=== PATIENT | female | born 1990 | race Caucasian/White ===

== ENCOUNTER 2017-02-22 16:14 | Emergency (ER) | payer MEDICAID ==
[~2017-02-22] VITALS: Ht 162.6 cm; Wt 71.5 kg
[~2017-02-22 16:14] MED LIST: IBUP-1542 PO; NITR-58 PO; PHEN-537 PO
[2017-02-22 16:21] VITALS: Ht 162.6 cm; Wt 71.5 kg
[2017-02-22] MEDS: ACETAMINOPHEN 500 MG TAB PO STA ×2 (19:02→19:04)
[2017-02-22 19:11] LABS: ADD SCAN DIFF NO
[2017-02-22 19:14] LABS: BASOPHILS % 0.2 % (0.0-2.0); EOSINOPHILS # 0.1 10^3/ul (0.0-0.5); EOSINOPHILS % 0.9 % (0.0-7.0); HEMOGLOBIN 11.9 g/dl (12.0-16.0); LYMPHOCYTES # 1.8 10^3/ul (0.8-2.9); LYMPHOCYTES % 15.3 % (15.0-51.0); MEAN CORPUSCULAR HEMOGLOBIN 31.5 pg (29.0-33.0); MEAN CORPUSCULAR VOLUME 89.9 fl (82.0-101.0); MEAN PLATELET VOLUME 9.1 fl (7.4-10.4); MONOCYTE # 0.7 10^3/ul (0.3-0.9); MONOCYTES % 5.6 % (0.0-11.0); NEUTROPHIL # 9.1 10^3/ul (1.6-7.5); NEUTROPHILS % 77.6 % (39.0-77.0); PLATELET COUNT 271 10^3/UL (140-415); RED BLOOD COUNT 3.78 10^6/ul (4.20-5.40); RED CELL DISTRIBUTION WIDTH 13.2 % (11.5-14.5); WHITE BLOOD COUNT 11.7 10^3/ul (4.8-10.8)
[2017-02-22 19:15] LABS: ADD UMIC YES; UR BILIRUBIN (Dip) NEGATIVE (NEGATIVE); UR BLOOD (Dip) 2+ (NEGATIVE); UR CLARITY SLIGHTLY CLOUDY (CLEAR); UR COLOR LT. YELLOW (YELLOW); UR GLUCOSE (Dip) NEGATIVE (NEGATIVE); UR KETONES (Dip) NEGATIVE (NEGATIVE); UR LEUKOCYTE ESTERASE (Dip) 1+ (NEGATIVE); UR NITRITE (Dip) NEGATIVE (NEGATIVE); UR TOTAL PROTEIN (Dip) 1+ (NEGATIVE); UR UROBILINOGEN (Dip) 1.0 E.U./dL (0.1-1.0)
--- NOTE | 2017-02-22 19:18 | RADRPT ---
PROCEDURE: Obstetrical ultrasound greater than 14 weeks CLINICAL INDICATION: Vaginal bleeding TECHNIQUE: Real time sonographic imaging of the gravid uterus is performed transabdominally and mu ltiple static lobo scale and Doppler images are submitted for review as are measurements. The image s are reviewed on the PACS. COMPARISON: No relevant exams are available FINDINGS: The cervical os is closed with a normal cervical length of 4.23 cm. There is a single living intrauterine gestation in variable presentation. The heart beat is e stimated at 156 bpm. The measurements are as follows: BPD:3.47 cm HC:13.04 cm AC:10.82 cm FL:2.17 cm Estimated gestational age is 16 weeks 5 days. The estimated date of delivery is 08/04/2017. The estimated weight is 163 grams. Placenta is posterior and grade 0. There is no evidence of abruption. A marginal placenta previa is suspected. anatomic survey is performed and shows no abnormality, the three-vessel cord and cord insertio n are unremarkable. The amniotic fluid is qualitatively normal with a maximum vertical pocket normal measured at 3.67 cm . Ovaries are not visualized. There is no evidence of adnexal mass or free fluid in the cul-de-sac. RPTAT:HJJR IMPRESSION: 1. Single viable intrauterine gestation estimated at 16 weeks 5 days with the estimated date of deli very 08/04/2017. 2. A marginal placenta previa is suspected, a posterior grade 0 placenta without evidence of abrupti on. Physician Herb Date Time Electronically viewed and signed by Physician Herb on 02/22/2017 19:18 /
[2017-02-22 19:25] LABS: UR BACTERIA MANY /HPF (NONE SEEN); UR SQUAMOUS EPITHELIAL CELL MODERATE /HPF (FEW)
--- NOTE | 2017-02-22 20:18 | ERD ---
ER Documentation Chief Complaint Date/Time DATE: 02/22/17 TIME: 20:14 Chief Complaint BIB FAMILY C/O VAGINAL BLEEDING X 1 DAY 14 WEEKS HPI Is a 26-year-old female who presents the emergency department today complaining of some vaginal bleeding that was heavy after having sex with her boyfriend this morning. States that the bleeding has stopped a little bit but is spotting. States she is approximately 14-16 weeks . Denies any fevers or chills, dysuria. ROS All systems reviewed and are negative except as per history of present illness. Medications Home Meds Active Scripts Cephalexin* (Keflex*) 500 Mg Capsule, 500 MG PO QID for 7 Days, CAP Prov:CHAVA GIORDANO-C 02/22/17 Acetaminophen* (Tylophen*) 500 Mg Capsule, 1 CAP PO Q6H Y for PAIN AND OR ELEVATED TEMP, #30 CAP Prov:CHAVA GIORDANO PA-C 02/22/17 Ibuprofen* (Motrin*) 600 Mg Tab, 600 MG PO Q8, #30 TAB 0 Refills Prov:JOSÉ MIGUEL STOKES PA-C 02/05/16 Phenazopyridine Hcl* (Pyridium*) 100 Mg Tab, 100 MG PO TID Y for URINARY PAIN for 3 Days, #9 TAB 0 Refills Prov:JOSÉ MIGUEL STOKES PA-C 02/05/16 Nitrofurantoin Monohyd Macrocr (Macrobid) 100 Mg Capsr, 100 MG PO BID for 7 Days , #14 CAP 0 Refills Prov:JOSÉ MIGUEL STOKES PA-C 02/05/16 Allergies Allergies: Coded Allergies: No Known Drug Allergy (Verified Allergy, Unknown, 08/11/12) PMhx/Soc History of Surgery: Yes (CHOLECYSTECTOMY?? PT UNSURE.) Anesthesia Reaction: No Hx Neurological Disorder: No Hx Respiratory Disorders: No Hx Cardiac Disorders: No Hx Psychiatric Problems: No Hx Miscellaneous Medical Probl: No Hx Alcohol Use: No Hx Substance Use: No Hx Tobacco Use: No Smoking Status: Unknown if ever smoked Physical Exam Vitals Vital Signs Date Time Temp Pulse Resp B/P Pulse Ox O2 Delivery O2 Flow Rate FiO2 02/22/17 16:21 97.8 88 20 147/63 98 Physical Exam Const: No acute distress Head: Atraumatic Eyes: Normal Conjunctiva ENT: Normal External Ears, Nose and Mouth. Neck: Full range of motion..~ No meningismus. Resp: Clear to auscultation bilaterally Cardio: Regular rate and rhythm, no murmurs Abd: Soft, mild suprapubic tenderness, non distended. Normal bowel sounds Skin: No petechiae or rashes Back: No midline or flank tenderness Ext: No cyanosis, or edema Neur: Awake and alert Psych: Normal Mood and Affect Result Diagram: 02/22/17 9702 Results 24 hrs Laboratory Tests Test 02/22/17 18:30 02/22/17 18:55 Urine Color LT. YELLOW Urine Clarity SLIGHTLY CLOUDY Urine pH Urine Specific [place] Urine Ketones NEGATIVE Urine Nitrite NEGATIVE Urine Bilirubin NEGATIVE Urine Urobilinogen 1.0 E.U./dL Urine Leukocyte Esterase 1+ Urine Microscopic RBC 5-10/HPF Urine Microscopic WBC >200/HPF Urine Squamous Epithelial Cells MODERATE/HPF Urine Bacteria MANY/HPF Urine Hemoglobin 2+ Urine Glucose NEGATIVE% Urine Total Protein 1+ White Blood Count 11.710^3/ul Red Blood Count 3.7810^6/ul Hemoglobin 11.9g/dl Hematocrit 34.0% Mean Corpuscular Volume 89.9fl Mean Corpuscular Hemoglobin 31.5pg Mean Corpuscular Hemoglobin Concent 35.0g/dl Red Cell Distribution Width 13.2% Platelet Count 68134^3/UL Mean Platelet Volume 9.1fl Neutrophils % 77.6% Lymphocytes % 15.3% Monocytes % 5.6% Eosinophils % 0.9% Basophils % 0.2% Nucleated Red Blood Cells % 0.0/100WBC Neutrophils # 9.110^3/ul Lymphocytes # 1.810^3/ul Monocytes # 0.710^3/ul Eosinophils # 0.110^3/ul Basophils # 0.010^3/ul Nucleated Red Blood Cells # 0.010^3/ul Beta HCG, Quantitative 62520.0mIU/ml Current Medications Medications (Trade) Dose Ordered Sig/Clint Route PRN Reason Start Time Stop Time Status Last Admin Dose Admin Acetaminophen (Tylenol Tab) 500 mg ONCE STAT PO 02/22/17 18:18 02/22/17 18:20 DC DIAGNOSTIC IMAGING REPORT Patient: LEONOR CAO : 1990 Age: 26 Sex: F MR #: [id number] DOS: 02/22/17 0000 Ordering MD: CHAVA GIORDANO PA-C Location: [facility] Room/Bed: PROCEDURE: Obstetrical ultrasound greater than 14 weeks CLINICAL INDICATION: Vaginal bleeding TECHNIQUE: Real time sonographic imaging of the gravid uterus is performed transabdominally and multiple static lobo scale and Doppler images are submitted for review as are measurements. The images are reviewed on the PACS. COMPARISON: No relevant exams are available FINDINGS: The cervical os is closed with a normal cervical length of 4.23 cm. There is a single living intrauterine gestation in variable presentation. The heart beat is estimated at 156 bpm. The measurements are as follows: BPD: 3.47 cm HC: 13.04 cm AC: 10.82 cm FL: 2.17 cm Estimated gestational age is 16 weeks 5 days. The estimated date of delivery is 08/04/2017. The estimated weight is 163 grams. Placenta is posterior and grade 0. There is no evidence of abruption. A marginal placenta previa is suspected. anatomic survey is performed and shows no abnormality, the three-vessel cord and cord insertion are unremarkable. The amniotic fluid is qualitatively normal with a maximum vertical pocket normal measured at 3.67 cm. Ovaries are not visualized. There is no evidence of adnexal mass or free fluid in the cul-de-sac. RPTAT:HJJR IMPRESSION: 1. Single viable intrauterine gestation estimated at 16 weeks 5 days with the estimated date of delivery 08/04/2017. 2. A marginal placenta previa is suspected, a posterior grade 0 placenta without evidence of abruption. Physician Herb Date Time Electronically viewed and signed by Physician Herb on 02/22/2017 19:18 JR/ CC: CHAVA GIORDANO PA-C Procedures/[facility] This 26-year-old female presents the emergency department today complaining of vaginal bleeding after sexual intercourse earlier today. Patient indicates she is approximately 14-6 weeks given this I did obtain a complete OB workup. Laboratory work shows a mildly elevated white blood cell count. Her hemoglobin is very mildly decreased. No indication of anemia. Platelets are within normal limits. Beta quant hCG 40734.0 Rh status is O+ UA shows 1+ leukocyte Estrace Ultrasound shows a single viable intrauterine gestation estimated 16 weeks and 5 days with estimated date of delivery of 08/04/2017. There is no evidence of adnexal mass or free fluid. heart tones are 1 56 bpm. There is a marginal placenta previa suspected. There is no evidence of abruption. Patient has vaginal bleeding in early secondary to sexual intercourse and likely placenta previa. Other differentials to include early failed versus early normal . I have explained the results to the patient. She was instructed to not have sexual intercourse without further evaluation by her primary care physician and [employer]. Patient indicated she had an appointment on the and I have instructed her to try to make a follow-up appointment sooner than that. Patient understood peer Patient was given Tylenol here in the emergency department. Patient will begin a prescription for Tylenol and Keflex for urinary tract infection At this time the patient is stable for discharge and outpatient management. Patient should follow up with their PCP in the next 1-2 days. They may return to the emergency department sooner for any persistent or worsening of symptoms. Patient understood and agreed with the plan. Departure Diagnosis: Primary Impression: Vaginal bleeding in patient at less than 20 weeks gestation Additional Impression: UTI in Trimester: second trimester Qualified Code: O23.42 - UTI in , second trimester Condition: CHAVA Nicole PA-C Feb 22, 2017 20:18
[2017-02-22] MEDS ORDERED: ACET500C5 PO (20:21)
[2017-02-22] MEDS ORDERED: CEPH-443 PO (20:22)
== END 2017-02-22 20:29 | disposition home or self-care (01) ==
LOC: FTE 16:14
DX: O20.9 Hemorrhage in early pregnancy, unspecified (principal); O23.42 Unspecified infection of urinary tract in pregnancy, second trimester; Z3A.16 16 weeks gestation of pregnancy
CPT/HCPCS: 36415; 76805; 81001; 84702; 85025; 86900; 86901; Z7502; Z7610

== ENCOUNTER 2017-02-24 14:07 | Emergency (ER) | payer MEDICAID ==
[~2017-02-24] VITALS: Ht 160 cm; Wt 78.0 kg
[~2017-02-24 14:07] MED LIST changes: +ACET500C5 PO; +CEPH-443 PO
[2017-02-24 14:10] VITALS: Ht 160 cm; Wt 78.0 kg
[2017-02-24 16:35] LABS: ADD SCAN DIFF NO
[2017-02-24 16:39] LABS: BASOPHILS % 0.1 % (0.0-2.0); EOSINOPHILS % 0.1 % (0.0-7.0); HEMATOCRIT 32.9 % (37.0-47.0); HEMOGLOBIN 11.3 g/dl (12.0-16.0); LYMPHOCYTES # 0.9 10^3/ul (0.8-2.9); LYMPHOCYTES % 5.7 % (15.0-51.0); MEAN CORPUSCULAR HGB CONC 34.3 g/dl (32.0-37.0); MEAN CORPUSCULAR VOLUME 90.4 fl (82.0-101.0); MEAN PLATELET VOLUME 9.1 fl (7.4-10.4); MONOCYTE # 0.8 10^3/ul (0.3-0.9); MONOCYTES % 5.3 % (0.0-11.0); NEUTROPHIL # 13.2 10^3/ul (1.6-7.5); NEUTROPHILS % 88.3 % (39.0-77.0); PLATELET COUNT 231 10^3/UL (140-415); RED BLOOD COUNT 3.64 10^6/ul (4.20-5.40); RED CELL DISTRIBUTION WIDTH 13.4 % (11.5-14.5)
[2017-02-24 16:47] LABS: ADD UMIC YES; UR ASCORBIC ACID NEGATIVE (NEGATIVE); UR BACTERIA FEW /HPF (NONE SEEN); UR BILIRUBIN (Dip) NEGATIVE (NEGATIVE); UR BLOOD (Dip) 2+ mg/dL (NEGATIVE); UR CLARITY TURBID (CLEAR); UR COLOR AMBER (YELLOW); UR GLUCOSE (Dip) NEGATIVE (NEGATIVE); UR KETONES (Dip) TRACE mg/dL (NEGATIVE); UR LEUKOCYTE ESTERASE (Dip) 3+ Leu/ul (NEGATIVE); UR MUCUS MANY /HPF (NONE SEEN); UR NITRITE (Dip) POSITIVE (NEGATIVE); UR RBC 27 /HPF (0-5); UR SPECIFIC GRAVITY (Dip) 1.016 (1.003-1.030); UR SQUAMOUS EPITHELIAL CELL MANY /HPF (FEW); UR TOTAL PROTEIN (Dip) 2+ mg/dl (NEGATIVE); UR UROBILINOGEN (Dip) NEGATIVE (NEGATIVE)
[2017-02-24 17:09] LABS: ALBUMIN 4.4 g/dl (3.3-4.9); ALBUMIN/GLOBULIN RATIO 1.69; BILIRUBIN,INDIRECT 0.5 mg/dl (0-1.1); BILIRUBIN,TOTAL 0.5 mg/dl (0.2-1.3); CALCIUM 8.8 mg/dl (8.4-10.2); CREATININE 0.5 mg/dl (0.44-1.00); POTASSIUM 3.3 mmol/L (3.5-5.1)
--- NOTE | 2017-02-24 17:23 | ERD ---
ER Documentation Chief Complaint Date/Time DATE: 02/24/17 TIME: 17:20 Chief Complaint HERE LAST TUESDAY,16 WEEKS PREG ON ANTIOTIC X 1 DAY FOR UTI, HS BACK PAIN HPI Patient is a 26-year-old female approximately 16 weeks complaining of bilateral flank pain. She was here last Tuesday diagnosed with urinary tract infection and given a prescription for Keflex but she never picked it up until today and even so she has not yet began taking the medication. She denies fever. She denies dysuria but does admit to urinary frequency. Denies any vaginal bleeding or hematuria. Vomited one time. She is tolerating oral intake. ROS All systems reviewed and are negative except as per history of present illness. Medications Home Meds Active Scripts Cephalexin* (Keflex*) 500 Mg Capsule, 500 MG PO QID for 7 Days, CAP Prov:CHAVA GIORDANOC 02/22/17 Acetaminophen* (Tylophen*) 500 Mg Capsule, 1 CAP PO Q6H Y for PAIN AND OR ELEVATED TEMP, #30 CAP Prov:CHAVA GIORDANO PA-C 02/22/17 Ibuprofen* (Motrin*) 600 Mg Tab, 600 MG PO Q8, #30 TAB 0 Refills Prov:JOSÉ MIGUEL STOKES PA-C 02/05/16 Phenazopyridine Hcl* (Pyridium*) 100 Mg Tab, 100 MG PO TID Y for URINARY PAIN for 3 Days, #9 TAB 0 Refills Prov:JOSÉ MIGUEL STOKES PA-C 02/05/16 Nitrofurantoin Monohyd Macrocr (Macrobid) 100 Mg Capsr, 100 MG PO BID for 7 Days , #14 CAP 0 Refills Prov:JOSÉ MIGUEL STOKES PA-C 02/05/16 Allergies Allergies: Coded Allergies: No Known Drug Allergy (Verified Allergy, Unknown, 08/11/12) PMhx/Soc History of Surgery: Yes (CHOLECYSTECTOMY?? PT UNSURE.) Anesthesia Reaction: No Hx Neurological Disorder: No Hx Respiratory Disorders: No Hx Cardiac Disorders: No Hx Psychiatric Problems: No Hx Miscellaneous Medical Probl: No Hx Alcohol Use: No Hx Substance Use: No Hx Tobacco Use: No Smoking Status: Never smoker FmHx Family History: No diabetes Physical Exam Vitals Vital Signs Date Time Temp Pulse Resp B/P Pulse Ox O2 Delivery O2 Flow Rate FiO2 02/24/17 14:10 99.5 73 20 116/73 99 Physical Exam General: well developed, well nourished, alert, nontoxic, no distress Head: normocephalic, atraumatic Neck: Supple, nontender, no lymphadenopathy, no midline tenderness Respiratory: Clear to auscaultation bilaterally, speaks in full sentences, no use of accesory muscles or labored breathing, no rales, ronchi, or wheezing Cardiovascular: RRR, No murmurs GI: soft, non tender, non distended, negative murphys sign, negative mcburneys point tenderness, no cva tenderness bilaterally, no rebound or guarding Back: no midline tenderness, no step offs or bony abnormalities, sensation to light touch in tact Result Diagram: 02/24/17 1632 02/24/17 1632 Results 24 hrs Laboratory Tests Test 02/24/17 16:20 02/24/17 16:32 Urine Color TIGRE Urine Clarity TURBID Urine pH 5.0 Urine Specific [place] 1.016 Urine Ketones TRACEmg/dL Urine Nitrite POSITIVEmg/dL Urine Bilirubin NEGATIVEmg/dL Urine Urobilinogen NEGATIVEmg/dL Urine Leukocyte Esterase 3+[place]/ul Urine Microscopic RBC 27/HPF Urine Microscopic WBC > 182/HPF Urine Squamous Epithelial Cells MANY/HPF Urine Bacteria FEW/HPF Urine Mucus MANY/HPF Urine Hemoglobin 2+mg/dL Urine Glucose NEGATIVEmg/dL Urine Total Protein 2+mg/dl White Blood Count 15.010^3/ul Red Blood Count 3.6410^6/ul Hemoglobin 11.3g/dl Hematocrit 32.9% Mean Corpuscular Volume 90.4fl Mean Corpuscular Hemoglobin 31.0pg Mean Corpuscular Hemoglobin Concent 34.3g/dl Red Cell Distribution Width 13.4% Platelet Count 83232^3/UL Mean Platelet Volume 9.1fl Neutrophils % 88.3% Lymphocytes % 5.7% Monocytes % 5.3% Eosinophils % 0.1% Basophils % 0.1% Nucleated Red Blood Cells % 0.0/100WBC Neutrophils # 13.210^3/ul Lymphocytes # 0.910^3/ul Monocytes # 0.810^3/ul Eosinophils # 0.010^3/ul Basophils # 0.010^3/ul Nucleated Red Blood Cells # 0.010^3/ul Sodium Level 138mmol/L Potassium Level 3.3mmol/L Chloride Level 103mmol/L Carbon Dioxide Level 25mmol/L Anion Gap 13 Blood Urea Nitrogen 6mg/dl Creatinine 0.50mg/dl Glucose Level 99mg/dl Calcium Level 8.8mg/dl Total Bilirubin 0.5mg/dl Direct Bilirubin 0.00mg/dl Indirect Bilirubin 0.5mg/dl Aspartate Amino Transf (AST/SGOT) 21IU/L Alanine Aminotransferase (ALT/SGPT) 39IU/L Alkaline Phosphatase 64IU/L Total Protein 7.0g/dl Albumin 4.4g/dl Globulin 2.60g/dl Albumin/Globulin Ratio 1.69 Current Medications Medications (Trade) Dose Ordered Sig/Clint Route PRN Reason Start Time Stop Time Status Last Admin Dose Admin Ceftriaxone Sodium (Rocephin) 1 gm ONCE ONCE IM 02/24/17 17:30 02/24/17 17:31 Procedures/MDM Patient is here for flank pain. She is . Approximately 16 weeks. Low- grade temperature 99.5. Reviewed the case with Dr. Sanchez who recommended CBC, chemistry panel, and urine. She does have elevated white blood cell count of 15 and her urine is consistent with urinary tract infection. Chemistry panel is unremarkable and kidney function is normal. I reviewed the case and all findings with Dr. cabrales and we agree she is suitable for outpatient management. She was given ceftriaxone here in the emergency room IM and she already has a prescription for Keflex which she will begin taking. Recommended this patient follow up with her primary care doctor within 48 hours or return to the emergency room for any worsening of symptoms. However this time I do believe there is suitable for outpatient management. I answered all their questions and they agreed with the plan and were discharged home. Departure Diagnosis: Primary Impression: Pyelonephritis affecting Condition: Stable Patient Instructions: Pyelonephritis, Female (Adult) Additional Instructions: Llame al doctor MAANA y tita wolf KRYSTA PARA DENTRO DE 1-2 [place].Dgale a la secretaria que nosotros le instruimos hacer esta krysta.Avise o llame si nagel condicin se empeora antes de la krysta. Regresa aqui si peor o no mejor. SANDRA HONG PA-C Feb 24, 2017 17:23
[2017-02-24] MEDS ORDERED: CEFTRIAXONE 1 GM INJ IM ONE (17:30)
[2017-02-24] MEDS ORDERED: LIDOCAINE 1% (MDV) 20 ML INJ IM ONE (17:30)
== END 2017-02-24 17:40 | disposition home or self-care (01) ==
LOC: FTE 14:07
DX: O23.02 Infections of kidney in pregnancy, second trimester (principal); R10.9 Unspecified abdominal pain; Z3A.16 16 weeks gestation of pregnancy
CPT/HCPCS: 80053; 81001; 85025; 87086; 96372; J0696; Z7502; Z7610

== ENCOUNTER 2017-07-11 17:27 | Outpatient (CLI) | payer OTHER ==
[~2017-07-11] VITALS: Ht 162.6 cm; Wt 78.3 kg
[2017-07-11 18:00] VITALS: BP 112/77; PULSE 80; RESP 20; Ht 162.6 cm; Wt 78.3 kg
--- NOTE | 2017-07-11 21:58 | TRIAGE ---
OB Triage Datetime Report Generated by CPN: 07/11/2017 20:51 Datetime: 07/11/2017 20:17 Labor Evaluation Frequency: 0 Monitor Mode: External Duration (sec)2399: 0 Resting Tone [place]: Relaxed Heart Rate FHR Baseline Rate: 130 Monitor Mode: External US Variability: Moderate 6-25 bpm Accelerations: 15X15 Decelerations: None Category: Category I Datetime: 07/11/2017 20:00 Labor Evaluation Frequency: OCCASIONAL Monitor Mode: External Duration (sec)2399: 60-80 Quality: Mild Pattern: Normal: <= 5 Contractions in 10 Minutes Resting Tone [place]: Relaxed Heart Rate FHR Baseline Rate: 135 Monitor Mode: External US Variability: Moderate 6-25 bpm Accelerations: 15X15 Decelerations: None Category: Category I Datetime: 07/11/2017 19:46 Maternal Assessment Level of Consciousness: Fully Conscious DTR's/Clonus: DTRs 2+; No Clonus Headache: Denies Blurred Vision: No Respiratory Effort: Unlabored; Regular Rhythm; Equal Expansion Nausea/Vomiting: Denies RUQ Epigastric Pain: Denies Pain Assessment Pain Scale: 0 Pain Presence: None/Denies Pain Type: N/A Pain Assessment Comments: PT DENIES FEELING UC'S AT THIS TIME Datetime: 07/11/2017 19:00 Labor Evaluation Frequency: 4-8 Monitor Mode: External Duration (sec)2399: 50-100 Quality: Mild Pattern: Normal: <= 5 Contractions in 10 Minutes Resting Tone [place]: Relaxed Heart Rate FHR Baseline Rate: 135 Monitor Mode: External US Variability: Moderate 6-25 bpm Accelerations: 15X15 Decelerations: None Category: Category I Comments: NST REACTIVE FOR GETSATIONAL AGE Datetime: 07/11/2017 18:00 Time of Arrival: 07/11/2017 17:10 EGA: 36.4 Arrived By: Ambulatory Arrived From: Office Chief Complaint: PT CAME IN WITH A RX FOR NST, BPP, AND EFW Movement: Present Contractions: Denies/Absent Rupture of Membranes: Denies Vaginal Bleeding: None Vaginal Discharge: Denies Recent Sexual Intercouse: Denies Abdominal Trauma: Not Applicable Provider Notified: JARAD
--- NOTE | 2017-07-12 04:09 | PN ---
Triage Information Date/Time Reason for visit: Weeks of Gestation 36w 3d /Para Objective Vital Signs Date Time Temp Pulse Resp B/P Pulse Ox O2 Delivery O2 Flow Rate FiO2 07/11/17 18:00 98.4 80 20 112/77 100 Room Air Heart Rate Comments reactive Contractions: None Results/Medications Imaging Results BPP 8/8, ZACK 9.8cm, EFW 3070g 65% Disposition: Discharge Assessment/Plan 26 y/o at 36w 3d for r/o SGA. EFW normal. -discharge home -f/u with OB MARIA LUZ LAYNE Jul 12, 2017 04:09
== END 2017-07-11 20:38 | disposition home or self-care (01) ==
LOC: L-D 17:27 → OBT 17:27
PROVIDERS: ATTEND Obstetrics & Gynecology
DX: O36.5930 Maternal care for other known or suspected poor fetal growth, third trimester, not applicable or unspecified (principal); Z3A.36 36 weeks gestation of pregnancy
CPT/HCPCS: 76815; 76818; Z7500; G0463

== ENCOUNTER 2017-07-25 03:40 | Inpatient (IN) | payer OTHER ==
[~2017-07-25] VITALS: Ht 162.6 cm; Wt 78.8 kg
[2017-07-25 04:05] VITALS: Ht 162.6 cm; Wt 78.8 kg
[2017-07-25 04:06] VITALS: BP 113/81; PULSE 75; RESP 18
[2017-07-25] MEDS ORDERED: PREN-93 PO (04:09)
[2017-07-25] MEDS ORDERED: LACTATED RINGER'S 1,000 ML IV SCH (04:32)
[2017-07-25] MEDS ORDERED: LACTATED RINGER'S 1,000 ML IV PRN (04:40)
[2017-07-25] MEDS ORDERED: MISOPROSTOL 200 MCG TAB PR PRN (05:00)
[2017-07-25] MEDS ORDERED: OXYTOCIN 30 UNITS/LR 500 ML IV PRN (05:00)
[2017-07-25] MEDS ORDERED: BUTORPHANOL 2 MG INJ IV PRN ×2 (05:00)
[2017-07-25] MEDS ORDERED: AMPICILLIN 2 GM/NS (PMX) 100 ML IV ONE (05:00)
[2017-07-25] MEDS ORDERED: CARBOPROST 250 MCG INJ IM PRN (05:00)
[2017-07-25] MEDS ORDERED: LIDOCAINE 1% (MPF) 30 ML INJ INJ PRN (05:00)
[2017-07-25] MEDS ORDERED: IBUPROFEN 600 MG TAB PO PRN (05:00)
[2017-07-25] MEDS ORDERED: HYDROCODONE/APAP (5/325) TAB PO PRN (05:00)
[2017-07-25] MEDS ORDERED: OXYTOCIN 30 UNITS/LR 500 ML IV SCH ×2 (05:00→12:00)
[2017-07-25] MEDS ORDERED: METHYLERGONOVINE 0.2 MG INJ IM PRN (05:00)
[2017-07-25 07:05] LABS: ADD UMIC NO; UR ASCORBIC ACID NEGATIVE (NEGATIVE); UR BILIRUBIN (Dip) NEGATIVE (NEGATIVE); UR BLOOD (Dip) NEGATIVE (NEGATIVE); UR CLARITY CLEAR (CLEAR); UR COLOR YELLOW (YELLOW); UR GLUCOSE (Dip) NEGATIVE (NEGATIVE); UR KETONES (Dip) NEGATIVE (NEGATIVE); UR LEUKOCYTE ESTERASE (Dip) NEGATIVE Leu/ul (NEGATIVE); UR NITRITE (Dip) NEGATIVE (NEGATIVE); UR SPECIFIC GRAVITY (Dip) 1.013 (1.003-1.030); UR TOTAL PROTEIN (Dip) NEGATIVE (NEGATIVE); UR UROBILINOGEN (Dip) NEGATIVE (NEGATIVE)
[2017-07-25 07:08] LABS: ALANINE AMINOTRANSFERASE 18 IU/L (13-69); ALBUMIN 3.6 g/dl (3.3-4.9); ALBUMIN/GLOBULIN RATIO 1.02; ALKALINE PHOSPHATASE 246 IU/L (42-121); ANION GAP 14 (8-16); ASPARTATE AMINO TRANSFERASE 22 IU/L (15-46); BILIRUBIN,INDIRECT 0.3 mg/dl (0-1.1); BILIRUBIN,TOTAL 0.3 mg/dl (0.2-1.3); BLOOD UREA NITROGEN 6 mg/dl (7-20); CALCIUM 9.1 mg/dl (8.4-10.2); CARBON DIOXIDE 23 mmol/L (21-31); CHLORIDE 109 mmol/L (97-110); CREATININE 0.47 mg/dl (0.44-1.00); GLUCOSE 76 mg/dl (70-220); POTASSIUM 3.8 mmol/L (3.5-5.1); SODIUM 142 mmol/L (135-144); TOTAL PROTEIN 7.1 g/dl (6.1-8.1)
[2017-07-25 07:57] LABS: BASOPHILS % 0.4 % (0.0-2.0); EOSINOPHILS # 0.1 10^3/ul (0.0-0.5); EOSINOPHILS % 1.2 % (0.0-7.0); HEMATOCRIT 34.4 % (37.0-47.0); HEMOGLOBIN 11.4 g/dl (12.0-16.0); LYMPHOCYTES # 2.1 10^3/ul (0.8-2.9); LYMPHOCYTES % 18.5 % (15.0-51.0); MEAN CORPUSCULAR HGB CONC 33.1 g/dl (32.0-37.0); MEAN CORPUSCULAR VOLUME 87.5 fl (82.0-101.0); MEAN PLATELET VOLUME 9.9 fl (7.4-10.4); MONOCYTE # 0.7 10^3/ul (0.3-0.9); MONOCYTES % 5.9 % (0.0-11.0); NEUTROPHIL # 8.2 10^3/ul (1.6-7.5); NEUTROPHILS % 73.3 % (39.0-77.0); PLATELET COUNT 234 10^3/UL (140-415); RED BLOOD COUNT 3.93 10^6/ul (4.20-5.40); RED CELL DISTRIBUTION WIDTH 12.9 % (11.5-14.5); WHITE BLOOD COUNT 11.2 10^3/ul (4.8-10.8)
[2017-07-25] MEDS ORDERED: AMPICILLIN 1 GM/NS (PMX) 50 ML IV SCH (09:00)
[2017-07-25] MEDS ORDERED: EPHEDrine SULFATE 50 MG/5 ML SYG IV PRN (10:30)
[2017-07-25] MEDS ORDERED: FENTAnyl 2MCG/ML-ROPIV 0.2% 100 ML BAG EPI SCH (10:30)
[2017-07-25] MEDS ORDERED: ONDANSETRON 4 MG INJ IV PRN (10:30)
[2017-07-25] MEDS ORDERED: DIPHENHYDRAMINE 50 MG INJ IV PRN (10:30)
[2017-07-25] MEDS ORDERED: NALOXONE (0.4 MG/ML) INJ IV PRN (10:30)
--- NOTE | 2017-07-25 15:12 | HP ---
Date/Time of Note Date/Time of Note DATE: 07/25/17 TIME: 15:06 OB - History Hx of Present Free Text/Dictation 26y.o at 38w3d withSROM 0255 07/25/17bwith irreg uc VE 1cm 50% -2 course was unevenful admitted for expectant management poss augmentation. Chief Complaint: srom uc Estimated Due Date: Aug 04, 2017 : 2 Para: 1 Spontaneous : 0 Therapeutic : 0 Care: Good Care Ultrasounds: Normal mid trimester US Obstetrical Complications: None, Gestational Diabetes Medical Complications: None Past Family/Social History * Past Medical, Surgical, Family and Obstetric Histories reviewed from chart. Blood Type: O+ Rubella: immune RPR/VDRL: Negative GBS Status: Positive HBsAG: Negative OB Admission Exam Vital Signs Vital Signs Vital Signs Date Time Temp Pulse Resp B/P Pulse Ox O2 Delivery O2 Flow Rate FiO2 07/25/17 04:06 98.0 75 18 113/81 Room Air Physical Exam HEENT: WNL Heart: Rhythm Normal Lungs: Clear, Equal Abdomen: WNL Extremities: Normal Reflexes: Normal Cervical Dilatation: 1cm Effacement: 50% Station: -2 Membranes: Ruptured Amniotic Fluid: Clear Heart Rate: 130's Accelerations: Accelerations Present Decelerations: No Decelerations Contractions on Admission: >10 Minutes Apart Intensity: Mild Last 72 hours Lab Results CBC & BMP 07/25/17 04:50 Liver Function Test 07/25/17 04:50 Alanine Aminotransferase (ALT/SGPT) 18 Albumin 3.6 Alkaline Phosphatase 246 H Aspartate Amino Transf (AST/SGOT) 22 Direct Bilirubin 0.00 Total Protein 7.1 OB Assessment/Plan Other Assessment: iup38w 3d srom in early labor Plan: Expectant Management SUDARSHAN ABRAHAM MD Jul 25, 2017 15:12
--- NOTE | 2017-07-25 15:18 | LDN ---
Date/Time of Note Date/Time of Note DATE: 07/25/17 TIME: 15:13 Delivery Summary Weeks of Gestation 38w3d Placenta Delivered: Spontaneously Meconium: none Episiotomy: No Estimated blood loss: 100 Sponge & Needle done & correct: Yes Any foreign bodies felt in the: No Problems: Infant Delivery Information Sex Sex: female Apgars 1 Minute: 9 5 Minute: 9 10 Minute: 0 Suctioning Nose & mouth suctioned at shabbir: Yes Delee suction performed: No Umbilical Cord Umbilical cord with: 3 Vessels Cord presentations: nuchal cord Nuchal cord present X: 1 Cord Blood was obtained: Yes Mother & Baby Disposition Disposition Mom & Baby to Maternity; Good: Yes Mom transferred to: Other Baby to NICU: No () SUDARSHAN ABRAHAM MD Jul 25, 2017 15:18
[2017-07-25] MEDS: OXYTOCIN 30 UNITS/LR 500 ML IV SCH ×3 (16:52→16:54)
--- NOTE | 2017-07-27 17:03 | QN ---
Documentation Comment PATIENT WAS LEFT TO SEE MOTHER WHO WHILE SHE WAS IN LABOR SUDARSHAN ABRAHAM MD Jul 27, 2017 17:03
== END 2017-07-25 17:30 | disposition home or self-care (01) | DRG 775 ==
LOC: L-D 03:40 → OBT 03:40 → L-D 04:56
PROVIDERS: ADMIT Obstetrics & Gynecology; ATTEND Obstetrics & Gynecology
PROC: 10E0XZZ Delivery of Products of Conception, External Approach (ICD-10-PCS; principal; 2017-07-25)
DX: O69.81X0 Labor and delivery complicated by cord around neck, without compression, not applicable or unspecified (principal); Z37.0 Single live birth; Z3A.38 38 weeks gestation of pregnancy
CPT/HCPCS: 36415; 62319; 80053; 81003; 85025; 85730; 86592; 86900; 86901; 87086; 87340; G0463; J0290; J2590; J3010; J7120

== ENCOUNTER 2017-07-25 19:37 | Inpatient (IN) | END 2017-07-27 11:15 | disposition home or self-care (01) | DRG 776 ==